=== PATIENT | male | born 1950 | race Hispanic/Latino ===

== ENCOUNTER 2020-11-19 00:12 | Emergency (ER) | payer MEDICARE ==
[2020-11-19 03:23] VITALS: BP 87/41
== END 2020-11-19 03:47 | disposition home or self-care (01) ==
LOC: ER 00:14
DX: S00.83XA Contusion of other part of head, initial encounter (principal); W06.XXXA Fall from bed, initial encounter; Y93.84 Activity, sleeping; Y92.128 Other place in nursing home as the place of occurrence of the external cause; I10 Essential (primary) hypertension; E11.9 Type 2 diabetes mellitus without complications; D64.9 Anemia, unspecified
CPT/HCPCS: 70450; 72125; 99283